=== PATIENT | male | born 1975 | race Caucasian/White ===

== ENCOUNTER 2021-04-11 12:40 | Emergency (ER) | payer OTHER ==
[~2021-04-11] VITALS: Ht 172.7 cm; Wt 107.9 kg
[2021-04-11] MEDS ORDERED: NITROGLYCERIN 2% OINT 1 GM UNIT DOSE PACKET TOP STA (12:55)
--- NOTE | 2021-04-11 13:18 | ED Chest Pain ---
General Chief Complaint: Chest Pain Stated Complaint: CHEST/NECK PAIN Source: patient, EMS History of Present Illness Date Seen by Provider: Apr 11, 2021 Time Seen by Provider: 12:42 Initial Comments 46-year-old [facility] with complaints of chest pain going into his. He states this feels similar to when he has had doctors tell him that he has had heart attack. He reports seeing cardiology out of [facility] in [facility] about a year ago and did not get stents because he did not have insurance to stay on medicine after stent placement. He was not doing anything today when he had left sided chest pressure/squeezing and it went into his left side of neck. He had no sweating, nausea, vomiting. he has not been taking baby aspirin or lisinopril since Friday when he was incarcerated. He reports he is to be released today when the court sends paperwork to the intermediate. His symptoms resolved on arrival to ED. He was given aspirin by EMS. Allergies and Home Medications Allergies Coded Allergies: No Known Drug Allergies (Unverified , 04/11/21) Patient Home Medication List Home Medication List Reviewed: Yes Review of Systems Review of Systems Constitutional: no symptoms reported EENTM: No Symptoms Reported Respiratory: No Symptoms Reported Cardiovascular: See HPI Gastrointestinal: No Symptoms Reported Genitourinary: No Symptoms Reported Musculoskeletal: no symptoms reported Skin: no symptoms reported Psychiatric/Neurological: No Symptoms Reported Past Vekszra-Ttrnuz-Nwkueo Hx Past Medical History Cardiac: Yes Coronary Artery Disease, Hypertension Physical Exam Vital Signs Vital Signs - First Documented 04/11/21 12:45 Temp 35.7 Pulse 74 Resp 18 B/P (MAP) 143/80 (101) Pulse Ox 95 O2 Delivery Room Air Capillary Refill : Height, Weight, BMI Height: '" Weight: lbs. oz. kg; BMI Method: General Appearance: No Apparent Distress, WD/WN HEENT: PERRL/EOMI Neck: Full Range of Motion, Normal Inspection, Non Tender, Supple Respiratory: Chest Non Tender, Lungs Clear, Normal Breath Sounds Cardiovascular: Regular Rate, Rhythm, Normal Peripheral Pulses Gastrointestinal: Normal Bowel Sounds, No Pulsatile Mass, Non Tender, Soft Extremity: Normal Capillary Refill, Normal Inspection, No Pedal Edema Neurologic/Psychiatric: Alert, Oriented x3 Skin: Normal Color, Warm/Dry Progress/Results/Core Measures Results/Orders Lab Results Laboratory Tests Test 04/11/21 12:55 Range/Units White Blood Count 8.8 4.3-11.0 10^3/uL Red Blood Count 5.58 H 4.30-5.52 10^6/uL Hemoglobin 16.5 13.3-17.7 g/dL Hematocrit 49 40-54 % Mean Corpuscular Volume 88 80-99 fL Mean Corpuscular Hemoglobin 30 25-34 pg Mean Corpuscular Hemoglobin Concent 34 32-36 g/dL Red Cell Distribution Width 13.1 10.0-14.5 % Platelet Count 340 130-400 10^3/uL Mean Platelet Volume 9.6 9.0-12.2 fL Immature Granulocyte % (Auto) 0 % Neutrophils (%) (Auto) 67 42-75 % Lymphocytes (%) (Auto) 24 12-44 % Monocytes (%) (Auto) 7 0-12 % Eosinophils (%) (Auto) 2 0-10 % Basophils (%) (Auto) 1 0-10 % Neutrophils # (Auto) 5.9 1.8-7.8 X 10^3 Lymphocytes # (Auto) 2.1 1.0-4.0 X 10^3 Monocytes # (Auto) 0.6 0.0-1.0 X 10^3 Eosinophils # (Auto) 0.2 0.0-0.3 10^3/uL Basophils # (Auto) 0.1 0.0-0.1 10^3/uL Immature Granulocyte # (Auto) 0.0 0.0-0.1 10^3/uL Prothrombin Time 12.8 12.2-14.7 SEC INR Comment 0.9 0.8-1.4 Activated Partial Thromboplast Time 25 24-35 SEC Sodium Level 140 135-145 MMOL/L Potassium Level 4.2 3.6-5.0 MMOL/L Chloride Level 105 98-107 MMOL/L Carbon Dioxide Level 26 21-32 MMOL/L Anion Gap 9 5-14 MMOL/L Blood Urea Nitrogen 13 7-18 MG/DL Creatinine 1.07 0.60-1.30 MG/DL Estimat Glomerular Filtration Rate 74 BUN/Creatinine Ratio 12 Glucose Level 108 H 70-105 MG/DL Calcium Level 9.1 8.5-10.1 MG/DL Corrected Calcium 9.3 8.5-10.1 MG/DL Magnesium Level 1.9 1.6-2.4 MG/DL Total Bilirubin 0.2 0.1-1.0 MG/DL Aspartate Amino Transf (AST/SGOT) 27 5-34 U/L Alanine Aminotransferase (ALT/SGPT) 28 0-55 U/L Alkaline Phosphatase 90 40-136 U/L Troponin I < 0.30 <0.30 NG/ML Pro-B-Type Natriuretic Peptide 641.2 H <75.0 PG/ML Total Protein 6.9 6.4-8.2 GM/DL Albumin 3.7 3.2-4.5 GM/DL Lipase 28 8-78 U/L My Orders Orders - ASHLEE CRUZ MD Cbc With Automated Diff (04/11/21 12:55) Magnesium (04/11/21 12:55) Chest 1 View Ap/Pa Only (04/11/21 12:55) Ekg Tracing (04/11/21 12:55) Comprehensive Metabolic Panel (04/11/21 12:55) Protime With Inr (04/11/21 12:55) Partial Thromboplastin Time (04/11/21 12:55) O2 (04/11/21 12:55) Monitor-Rhythm Ecg Trace Only (04/11/21 12:55) Ed Iv/Invasive Line Start (04/11/21 12:55) Lipase (04/11/21 12:55) Troponin I Fs (04/11/21 12:55) Probnp Fs (04/11/21 12:55) Nitroglycerin Ointment (Nitrobid Ointme (04/11/21 12:55) Obtain Records From (Order) (04/11/21 12:57) Vital Signs/I&O 04/11/21 04/11/21 04/11/21 12:45 12:45 15:00 Temp 35.7 Pulse 74 72 Resp 18 16 B/P (MAP) 143/80 (101) 138/74 Pulse Ox 95 94 O2 Delivery Room Air Room Air Room Air Progress Progress Note #1: Progress Note Obtain basic labs as well as electrocardiogram and chest x-ray. Ordered nitroglycerin paste to help with complaint of some left neck pain going on for testing. His initial electrocardiogram did not demonstrate any acute ischemia. Since his symptoms started around 9 am if he was having ischemia he should have elevated troponin by now, almost 4 hours after onset. Try to obtain records from cardiology and when he reports he needed a stent placed last year at [facility] in [facility] Progress Note #2: Progress Note Labs appear stable without acute elevation of troponin. Especially since this was after 4 hours of chest pain after presenting tachycardia syndrome he would expect he would already have elevation of his troponin. His chest x-ray was negative for any acute process either. Records were never obtained from [facility] as they never faxed them to us. Advised pt of results and need for follow up and to take his meds as prescribed. counseled on follow up and return precautions and given number for Dr. 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 MN interval [address] el evation. QT interval 433 ms with a QTc interval 468 ms. There is no prior tracing immediately available for comparison. Diagnostic Imaging Diagonstic Imaging: Xray Plain Films/CT/US/NM/MRI: chest Comments [facility]. [place], [place] NAME: AKIL LEA [facility] REC#: [id number] PT STATUS: REG ER : 1975 PHYSICIAN: ASHLEE CRUZ MD ADMIT DATE: 04/11/21/ER FS Draft Date of Exam:04/11/21 CHEST 1 VIEW AP/PA ONLY INDICATION: Chest pain. TIME OF EXAM: 12:57 p.m. No prior studies are available for comparison. FINDINGS: The heart size is normal. The pulmonary vascularity is unremarkable. The lungs are clear. No infiltrate, effusion or pneumothorax is detected. IMPRESSION: No acute cardiopulmonary process is detected. Dictated on workstation # [id number] Dict: 04/11/21 1321 Trans: 04/11/21 1322 [facility] [id number] Interpreted by: MELISSA YOUNGER MD Electronically signed by: Reviewed: Reviewed by Me Departure Impression Primary Impression: Chest pain Qualified Codes: R07.9 - Chest pain, unspecified Disposition: 01 HOME, SELF-CARE Condition: Stable Departure-Patient Inst. Decision time for Depature: 14:28 Referrals: RANDALL LEE MD [facility] Patient Instructions: Chest Pain, Adult ED Add. Discharge Instructions: Check back with clinic and see Agronomy Research Manager for further evaluation. Restart your aspirin and Lisinopril. If having worsening symptoms or more problems seek medical care for recheck. [facility] clinic can be reached at [phone] to establish care with provider here in [place]. All discharge instructions reviewed with patient and/or family. Voiced understanding. ASHLEE CRUZ MD Apr 11, 2021 13:18
--- NOTE | 2021-04-11 13:23 | Diagnostic Imaging Report ---
INDICATION: Chest pain. TIME OF EXAM: 12:57 p.m. No prior studies are available for comparison. FINDINGS: The heart size is normal. The pulmonary vascularity is unremarkable. The lungs are clear. No infiltrate, effusion or pneumothorax is detected. IMPRESSION: No acute cardiopulmonary process is detected. Dictated by: Dictated on workstation # [id number]
[2021-04-11 13:33] LABS: BASOPHILS % (AUTO) 1 % (0-10); EOSINOPHILS % (AUTO) 2 % (0-10); HEMATOCRIT 49 % (40-54); HEMOGLOBIN 16.5 g/dL (13.3-17.7); LYMPHOCYTES % (AUTO) 24 % (12-44); MEAN CORPUSCULAR HEMOGLOBIN 30 pg (25-34); MEAN CORPUSCULAR HGB CONC 34 g/dL (32-36); MEAN CORPUSCULAR VOLUME 88 fL (80-99); MEAN PLATELET VOLUME 9.6 fL (9.0-12.2); MONOCYTES % (AUTO) 7 % (0-12); NEUTROPHILS % (AUTO) 67 % (42-75); PLATELET COUNT 340 10^3/uL (130-400); WHITE BLOOD COUNT 8.8 10^3/uL (4.3-11.0)
[2021-04-11 13:34] LABS: BASOPHILS # (AUTO) 0.1 10^3/uL (0.0-0.1); EOSINOPHILS # (AUTO) 0.2 10^3/uL (0.0-0.3); LYMPHOCYTES # (AUTO) 2.1 X 10^3 (1.0-4.0); MONOCYTES # (AUTO) 0.6 X 10^3 (0.0-1.0); NEUTROPHILS # (AUTO) 5.9 X 10^3 (1.8-7.8)
[2021-04-11 13:37] LABS: INR 0.9 (0.8-1.4); PROTHROMBIN TIME PATIENT 12.8 SEC (12.2-14.7)
[2021-04-11 14:03] LABS: CREATININE SERUM 1.07 MG/DL (0.60-1.30); POTASSIUM 4.2 MMOL/L (3.6-5.0)
[2021-04-11 14:04] LABS: ALBUMIN 3.7 GM/DL (3.2-4.5); BILIRUBIN,TOTAL 0.2 MG/DL (0.1-1.0); CALCIUM 9.1 MG/DL (8.5-10.1); MAGNESIUM 1.9 MG/DL (1.6-2.4); TOTAL PROTEIN 6.9 GM/DL (6.4-8.2)
[2021-04-11 15:00] VITALS: BP 138/74
== END 2021-04-11 15:00 | disposition home or self-care (01) ==
LOC: ER FS 12:46 → EDBD 12:46 → ER FS 15:00
DX: R07.9 Chest pain, unspecified (principal); I10 Essential (primary) hypertension; I25.2 Old myocardial infarction
CPT/HCPCS: 36415; 71045; 80053; 83690; 83735; 83880; 84484; 85025; 85610; 85730; 93005; 93041